=== PATIENT | female | born 1980 | race Caucasian/White ===

== ENCOUNTER 2017-04-15 15:14 | Emergency (ER) | payer BC ==
[2017-04-15 15:28] VITALS: PULSE 75
--- NOTE | 2017-04-15 18:10 | ED ---
General Adult HPI - General Chief complaint: Chest Pain Stated complaint: chest pain Time Seen by Provider: 04/15/17 17:13 Source: patient, family, RN notes reviewed Mode of arrival: wheelchair Limitations: no limitations - History of Present Illness Initial comments: Chief complaint and history of present illness a 36-year-old female who is coming emergency room after being in the clinic. Today when she awakened she has some tingling to the left side of her face which is since gone away tingling to the left arm left leg. No difficulty walking talking her balance. The patient's recently finished 10 days of Bactrim for a possible sinus infection. No other symptoms no other problems. - Related Data Home Medications Medication Instructions Recorded Confirmed Cetirizine HCl [Zyrtec] 10 mg PO HS PRN 04/15/17 04/15/17 diphenhydrAMINE HCL [Benadryl] 25 mg PO HS PRN 04/15/17 04/15/17 Allergies Allergy/AdvReac Type Severity Reaction Status Date / Time sulfamethoxazole Allergy Rash/Hives Verified 04/15/17 17:30 [From Bactrim] trimethoprim [From Bactrim] Allergy Rash/Hives Verified 04/15/17 17:30 Review of Systems ROS Statement: Those systems with pertinent positive or pertinent negative responses have been documented in the HPI. Review of systems no headache no visual acuity changes no tingling to the left side of face is gone. Some tingling to the ulnar aspect of her left arm to full range of motion with good rn chronic no chest pain palpitations shortness breath GI/ problems. And no neuro deficits other than subjective complaint of tingling to her left leg as well. All systems are reviewed Past medical problems none. Surgeries 3 C-sections, negative brown breast biopsy, laparoscopic exams for endometriosis and appendectomy. Family history mother had breast cancer. There is one family member with a stroke and EMS. The patient is not listing sulfa as an ALLERGY. Nonsmoker nondrinker. ROS Other: All systems not noted in ROS Statement are negative. Past Medical History Past Medical History: No Reported History Additional Past Medical History / Comment(s): ovarian cyst History of Any Multi-Drug Resistant Organisms: None Reported Past Surgical History: Section Additional Past Surgical History / Comment(s): 3 c section Past Psychological History: No Psychological Hx Reported Smoking Status: Never smoker Past Alcohol Use History: None Reported Past Drug Use History: None Reported General Exam - General Exam Comments Initial Comments: General: The patient is awake and alert, in no distress, and does not appear acutely ill. Plan a tingling sensation lateral aspect of the left arm left leg. Vital signs temperature 98.0 pulse 75 respiratory rate 18 pulse ox on percent room air blood pressure 120/58 Eye: Pupils are equal, round and reactive to light, extra-ocular movements are intact ; there is normal conjunctiva bilaterally. No signs of icterus. Ears, nose, mouth and throat: There are moist mucous membranes and no oral lesions. Neck: The neck is supple, there is no tenderness or JVD. Cardiovascular: There is a regular rate and rhythm. No murmur, rub or gallop is appreciated. Respiratory: Lungs are clear to auscultation, respirations are non-labored, breath sounds are equal. No wheezes, stridor, rales, or rhonchi. Back: There is no tenderness to palpation in the midline. There is no obvious deformity. No rashes noted. Musculoskeletal: Normal ROM, no tenderness, There is no pedal edema. There is no calf tenderness or swelling. Sensation intact. Pulses equal bilaterally 2+. Sensation of tingling to the left arm left lateral leg Neurological: CN II-XII intact, There are no obvious motor or sensory deficits. Coordination appears grossly intact. Speech is normal. No discernible deficits Skin: Skin is warm and dry and no rashes or lesions are noted. No rashes Limitations: no limitations Course Vital Signs 04/15/17 04/15/17 15:24 19:36 Temperature 98.0 F 98.4 F Pulse Rate 75 75 Respiratory 18 16 Rate Blood Pressure 120/58 112/57 O2 Sat by Pulse 100 100 Oximetry Medical Decision Making - Medical Decision Making Medical decision making the patient's white count 6 hemoglobin 13.9 hematocrit of 41 with a potassium 3.7. BUN 11 creatinine 0.63 with a GFR greater than 60. The glucose 84. CK 85 troponin 0.0-6. Patient feels better less tingling. She does have an appointment to follow-up with her family physician on Tuesday Rhianna she is been discussing this with her family physician and they're arranging an MRI. Patient advised to follow-up - Lab Data Result diagrams: 04/15/17 18:50 04/15/17 18:50 Lab Results 04/15/17 04/15/17 04/15/17 Range/Units 18:50 18:50 18:50 WBC 6.1 (3.8-10.6) k/uL RBC 4.82 (3.80-5.40) m/uL Hgb 13.9 (11.4-16.0) gm/dL Hct 41.5 (34.0-46.0) % MCV 86.2 (80.0-100.0) fL MCH 28.9 (25.0-35.0) pg MCHC 33.5 (31.0-37.0) g/dL RDW 13.9 (11.5-15.5) % Plt Count 255 (150-450) k/uL Neutrophils % 54 % Lymphocytes % 37 % Monocytes % 4 % Eosinophils % 2 % Basophils % 1 % Neutrophils # 3.3 (1.3-7.7) k/uL Lymphocytes # 2.3 (1.0-4.8) k/uL Monocytes # 0.2 (0-1.0) k/uL Eosinophils # 0.1 (0-0.7) k/uL Basophils # 0.0 (0-0.2) k/uL Sodium 139 (137-145) mmol/L Potassium 3.7 (3.5-5.1) mmol/L Chloride 103 (98-107) mmol/L Carbon Dioxide 26 (22-30) mmol/L Anion Gap 10 mmol/L BUN 11 (7-17) mg/dL Creatinine 0.63 (0.52-1.04) mg/dL Est GFR (MDRD) Af Amer >60 (>60 ml/min/1.73 sqM) Est GFR (MDRD) Non-Af >60 (>60 ml/min/1.73 sqM) Glucose 84 (74-99) mg/dL Calcium 9.0 (8.4-10.2) mg/dL Total Bilirubin 1.1 (0.2-1.3) mg/dL AST 22 (14-36) U/L ALT 41 (9-52) U/L Alkaline Phosphatase 64 (38-126) U/L Total Creatine Kinase 85 (30-135) U/L CK-MB (CK-2) 0.5 (0.0-2.4) ng/mL CK-MB (CK-2) Rel Index 0.6 Troponin I 0.026 (0.000-0.034) ng/mL Total Protein 7.1 (6.3-8.2) g/dL Albumin 4.4 (3.5-5.0) g/dL Disposition Clinical Impression: Paresthesia of arm Disposition: HOME SELF-CARE Condition: Fair Instructions: Paresthesia (ED) Additional Instructions: Take Benadryl as directed. Follow-up with family physician. Get MRI as you've discussed with your family doctor Referrals: Roxane Mixon MD [Primary Care Provider] - 1-2 days Time of Disposition: 19:49
[2017-04-15 18:59] LABS: Basophils % (A) 1 %; CH 30.1; CHCM 35.1; Eosinophils # (A) 0.1 k/uL (0-0.7); Eosinophils % (A) 2 %; HCT 41.5 % (34.0-46.0); HDW 2.87; HGB 13.9 gm/dL (11.4-16.0); Luc # (Auto) 0.13; Luc % (Auto) 2; Lymphocytes # (A) 2.3 k/uL (1.0-4.8); Lymphocytes % (A) 37 %; MCH 28.9 pg (25.0-35.0); MCHC 33.5 g/dL (31.0-37.0); MCV 86.2 fL (80.0-100.0); Mean Platelet Volume 7.4; Monocytes # (A) 0.2 k/uL (0-1.0); Monocytes % (A) 4 %; Neutrophils # (A) 3.3 k/uL (1.3-7.7); Neutrophils % (A) 54 %; RBC 4.82 m/uL (3.80-5.40); RDW 13.9 % (11.5-15.5); WBC 6.1 k/uL (3.8-10.6); WBC (Perox) 6.02
[2017-04-15 19:09] LABS: ALT 41 U/L (9-52); AST 22 U/L (14-36); Alkaline Phosphatase 64 U/L (38-126); Anion Gap 10 mmol/L; Blood Urea Nitrogen 11 mg/dL (7-17); Carbon Dioxide 26 mmol/L (22-30); Chloride 103 mmol/L (98-107); Glucose 84 mg/dL (74-99); Non-African American GFR(MDRD) >60 (>60 ml/min/1.73 sqM); Potassium 3.7 mmol/L (3.5-5.1); Sodium 139 mmol/L (137-145); Total Bilirubin 1.1 mg/dL (0.2-1.3); Total Protein 7.1 g/dL (6.3-8.2)
--- NOTE | 2017-04-15 19:10 | XR ---
EXAMINATION TYPE: XR chest 2V DATE OF EXAM: 04/15/2017 COMPARISON: NONE HISTORY: Weakness TECHNIQUE: Frontal and lateral views of the chest are obtained. FINDINGS: Heart and mediastinum are normal. There is a mild infiltrate in the right middle lobe. The other lung hopkins are clear. There is no pleural effusion. Bony thorax is intact. IMPRESSION: Small right middle lobe infiltrate. Normal heart.
[2017-04-15 19:24] LABS: Creatine Kinase MB 0.5 ng/mL (0.0-2.4); Troponin I 0.026 ng/mL (0.000-0.034)
[2017-04-15 19:38] VITALS: BP 112/57; RESP 16; TEMP 98.4
== END 2017-04-15 20:01 | disposition home or self-care (01) ==
LOC: EC 15:14
DX: R20.2 Paresthesia of skin (principal); Z88.2 Allergy status to sulfonamides
CPT/HCPCS: 36415; 71020; 80053; 82550; 82553; 84484; 85025; 93005; 99285

== ENCOUNTER → 2017-04-27 | Outpatient (CLI) | payer BC ==
--- NOTE | 2017-04-27 11:08 | XR ---
EXAMINATION TYPE: XR chest 2V DATE OF EXAM: 04/27/2017 COMPARISON: 04/15/2017 TECHNIQUE: PA and lateral views submitted. HISTORY: Abnormal x-ray FINDINGS: The lungs are clear and there is no pneumothorax, pleural effusion, or focal pneumonia. Hypertrophi c change of the spine. IMPRESSION: 1. No acute process.
== END | disposition home or self-care (01) ==
LOC: RADXRMAIN 10:29
PROVIDERS: ATTEND Family Medicine
DX: J18.1 Lobar pneumonia, unspecified organism (principal)
CPT/HCPCS: 71020

== ENCOUNTER 2018-11-01 16:00 | Emergency (ER) | payer BC ==
[2018-11-01 16:06] VITALS: TEMP 98.2
[2018-11-01] MEDS ORDERED: METOCLOPRAMIDE 5 MG/ML 2 ML VIAL IVP STA (16:44)
[2018-11-01] MEDS ORDERED: KETOROLAC 30 MG/ML 1 ML VIAL IVP STA (16:44)
[2018-11-01] MEDS ORDERED: diphenhydrAMINE 50 MG/ML 1 ML VIAL IVP STA (16:44)
[2018-11-01] MEDS ORDERED: SODIUM CHLORIDE 0.9% 1,000 ML IV STA (16:44)
[2018-11-01 17:55] VITALS: BP 110/60; PULSE 78; RESP 18
--- NOTE | 2018-11-01 18:12 | ED ---
General Adult HPI - General Chief complaint: Headache Stated complaint: headaches/left side facial problems Time Seen by Provider: 11/01/18 16:10 Source: patient, RN notes reviewed Mode of arrival: ambulatory Limitations: no limitations - History of Present Illness Initial comments: 38-year-old female without any past medical history besides ovarian cysts presents to the emergency department for a chief complaint of PARKS. Patient states she has had of headache on and off for the past couple days. He states this PARKS has persisted since last night. She states it is over the frontal area of her head. Patient states she has had significant amount of congestion over the past 5 days. She states both of her children have been sick at home with similar illnesses. Patient is complaining of a left-sided facial pain over the maxillary sinus radiating into the left ear. Patient states she does have pressure in the left ear as well. Patient states these headaches started when she started to become congested. She denies cough or fever. Patient admits to a sore throat. Patient denies any weakness in the upper or lower extremities. Denies any difficulty speaking. Patient went to [facility] and they were apparently concerned about stroke due to the left-sided facial pain. Patient has no other complaints at this time including shortness of breath, chest pain, abdominal pain, nausea or vomiting, or visual changes. - Related Data Home Medications Medication Instructions Recorded Confirmed Fluticasone Nasal [place] [Flonase 1 - 2 spray EA NOSTRIL DAILY PRN 11/01/18 11/01/18 Nasal [place]] Ibuprofen/Pseudoephedrine HCl 1 tab PO Q6H PRN 11/01/18 11/01/18 [Advil Cold & Sinus Caplet] Norethindrone AC-Eth Estradiol 1 tab PO DAILY 11/01/18 11/01/18 [Loestrin 21 1-20 Tablet] Pseudoephedrine [Sudafed] 30 mg PO Q4H PRN 11/01/18 11/01/18 Previous Rx's Medication Instructions Recorded Amoxicillin/Potassium Clav 1 tab PO Q12HR #20 tab 11/01/18 [Augmentin 875-125 Tablet] Fluticasone Propionate [Flonase 1 spray EA NOSTRIL DAILY #9.9 ml 11/01/18 Allergy Relief] Allergies Allergy/AdvReac Type Severity Reaction Status Date / Time sulfamethoxazole Allergy Rash/Hives Verified 11/01/18 16:06 [From Bactrim] trimethoprim [From Bactrim] Allergy Rash/Hives Verified 11/01/18 16:06 Review of Systems ROS Statement: Those systems with pertinent positive or pertinent negative responses have been documented in the HPI. ROS Other: All systems not noted in ROS Statement are negative. Past Medical History Past Medical History: No Reported History Additional Past Medical History / Comment(s): ovarian cyst History of Any Multi-Drug Resistant Organisms: None Reported Past Surgical History: Section Additional Past Surgical History / Comment(s): 3 c section Past Psychological History: No Psychological Hx Reported Smoking Status: Never smoker Past Alcohol Use History: None Reported Past Drug Use History: None Reported General Exam Limitations: no limitations General appearance: alert, in no apparent distress Head exam: Present: atraumatic, normocephalic, normal inspection Eye exam: Present: normal appearance, PERRL, EOMI. Absent: scleral icterus, conjunctival injection, periorbital swelling ENT exam: Present: normal exam, normal oropharynx (uvula midline, non erythematous), mucous membranes moist, normal external ear exam, other (tenderness noted over the left maxillary sinus, no significant erythema noted). Absent: TM's normal bilaterally (Patient has a serous otitis media noted of the left ear) Neck exam: Present: normal inspection, full ROM. Absent: tenderness, meningismus, lymphadenopathy Respiratory exam: Present: normal lung sounds bilaterally. Absent: respiratory distress, wheezes, rales, rhonchi, stridor Cardiovascular Exam: Present: regular rate, normal rhythm, normal heart sounds. Absent: systolic murmur, diastolic murmur, rubs, gallop, clicks Neurological exam: Present: alert, oriented X3, CN II-XII intact, normal gait Expanded Patient oriented to: Present: person, place, time Speech: Present: fluid speech Cranial nerves: EOM's Intact: Normal, Tongue Deviation: Normal, Nystagmus: Normal, Facial Sensation: Normal (sensation intact bilat) Cerebellar function: Finger to Nose: Normal, Heel to Diaz: Normal, Romberg: Normal Upper motor neuron: Julio Neglect: Normal, Pronator Drift: Normal Sensory exam: Upper Extremity Light Touch: Normal, Upper Extremity Pin Prick: Normal, Lower Extremity Light Touch: Normal, Lower Extremity Pin Prick: Normal Motor strength exam: RUE: 5 (no drift), LUE: 5 (no drift), RLE: 5 (no drift), LLE: 5 (no drift) Eye Response: (4) open spontaneously Motor Response: (6) obeys commands Verbal Response: (5) oriented Steff Total: 15 Psychiatric exam: Present: normal affect, normal mood Course Vital Signs 11/01/18 11/01/18 11/01/18 16:03 17:53 18:58 Temperature 98.2 F 98.2 F Pulse Rate 89 78 78 Respiratory 16 18 18 Rate Blood Pressure 143/87 110/60 110/60 O2 Sat by Pulse 100 98 98 Oximetry Medical Decision Making - Medical Decision Making 38-year-old female presents to the emergency department for chief complaint of headache and congestion 5 days. Patient has had congestion and sore throat for 5 days. She has had some headache and left-sided facial pain for the past few days intermittently. However this headache has persisted since last night. Patient states she has pressure behind her left ear. Denies loss of sensation of the face bilaterally. On exam facial movements are symmetric. No neuro deficits whatsoever. Patient is well-appearing. Apparently [facility] was concerned about a stroke however I do not see any neuro deficits in this patient and all have her symptoms are consistent with sinusitis. Patient was treated symptomatically for fever and pain decreased from 8-3. Patient is feeling significantly improved. Patient was given Augmentin for sinus infection. She will follow up with primary care in 1-2 days. I did discuss returning here patient has any worsening symptoms - Lab Data Lab Results 11/01/18 Range/Units 17:27 Influenza Type A RNA Not Detected (Not Detectd) Influenza Type B (PCR) Not Detected (Not Detectd) Disposition Clinical Impression: Sinusitis Disposition: HOME SELF-CARE Condition: Good Instructions (If sedation given, give patient instructions): Sinusitis (ED) Additional Instructions: Please take antibiotic as directed. Please use nasal spray. Follow up with primary care in 1-2 days. Return here to the emergency department if you have any worsening symptoms. Prescriptions: Amoxicillin/Potassium Clav [Augmentin 875-125 Tablet] 1 tab PO Q12HR #20 tab Fluticasone Propionate [Flonase Allergy Relief] 1 spray EA NOSTRIL DAILY #9.9 ml Is patient prescribed a controlled substance at d/c from ED?: No Referrals: Roxane Mixon MD [Primary Care Provider] - 1-2 days Time of Disposition: 17:50
== END 2018-11-01 18:58 | disposition home or self-care (01) ==
LOC: EC 16:00
DX: J32.9 Chronic sinusitis, unspecified (principal); H65.92 Unspecified nonsuppurative otitis media, left ear; Z88.2 Allergy status to sulfonamides; Z79.3 Long term (current) use of hormonal contraceptives
CPT/HCPCS: 87502; 99284; 96374; 96375 ×2; 96361; J1200; J2765; J1885

== ENCOUNTER 2023-03-08 15:39 | Emergency (ER) | payer BC ==
[2023-03-08 15:51] VITALS: RESP 18; TEMP 97.9
[2023-03-08] MEDS ORDERED: ACETAMINOPHEN TAB 325 MG TAB PO STA (16:20)
[2023-03-08 17:09] LABS: Glucose,Whole Blood 123 mg/dL (70-110)
--- NOTE | 2023-03-08 17:24 | CT ---
EXAMINATION TYPE: CT facial bones wo con CT DLP: combined DLP 1312.6 mGycm, Automated exposure control for dose reduction was used. DATE OF EXAM: 03/08/2023 4:47 PM COMPARISON: CT brain and cervical spine 03/08/2023. CLINICAL INDICATION:Female, 42 years old with history of fall; PHH, fall TECHNIQUE: Multiple unenhanced axial CT images were obtained of the facial bones soft tissue and bone windows. Coronal, axial and sagittal reformatted images were also provided in soft tissue and bone windows and submitted for interpretation. Additional 3-D reformatted images were obtained on a [employer] workstation. FINDINGS: Minimally displaced fracture involving the right and left nasal bones (series 14, image 29 and series 208, image 61). Mild soft tissue swelling of the nasal bridge and the nasal turbinates. The orbital contents are unremarkable. The temporal-mandibular joints appear symmetric. Mild edema of the nasal t urbinates and anterior ethmoid air cells. The remainder of the paranasal sinuses are normal in appear ance. IMPRESSION: Minimally displaced fractures of the nasal bones bilaterally with associated soft tissue swelling and edema of the nasal turbinates.
--- NOTE | 2023-03-08 17:24 | CT ---
EXAMINATION TYPE: CT brain cspine wo con CT DLP: combined DLP 1312.6 mGycm, Automated exposure control for dose reduction was used. DATE OF EXAM: 03/08/2023 4:47 PM COMPARISON: CT facial bone 03/08/2023. CLINICAL INDICATION:Female, 42 years old with history of fall; fall TECHNIQUE: Brain: Multiple axial CT images of the brain were obtained without IV contrast. Cspine: Axial CT images from the skull base to the inferior aspect of T2 we obtained without intraven ous contrast. Coronal and sagittal reformatted images were also reviewed. FINDINGS: Brain: Extra-axial spaces: No abnormal extra-axial fluid collections. Ventricular system: Within normal limits Cerebral parenchyma: No acute intraparenchymal hemorrhage or mass effect. The miller-white junction is well differentiated. Cerebellum: Unremarkable. Mass effect: No evidence of midline shift. Intracranial vasculature: unremarkable Soft tissues: Normal. Calvarium/osseous structures: No depressed skull fracture. Paranasal sinuses and mastoid air cells: Clear.Mastoid air cells are Clear Visualized orbits: Orbital contents are intact. Cervical spine: Fracture: None. Osseous structures: Unremarkable Vertebral alignment: Mild reversal of the normal cervical lordosis which is likely due to positioning . The craniocervical and cervicothoracic junctions are normally aligned. Spinal canal/Neural Foramina: No evidence of significant spinal canal narrowing. No evidence for sign ificant neural foraminal stenosis. Neck soft tissues: Prevertebral soft tissues are within normal limits. Other: The airway is patent. The lung apices are clear. IMPRESSION: 1. No acute intracranial process. 2. No evidence of cervical spine fracture.
--- NOTE | 2023-03-08 17:38 | ED ---
General Adult HPI - General Chief complaint: Fall Stated complaint: Fall Time Seen by Provider: 03/08/23 15:57 Source: patient, family, RN notes reviewed Mode of arrival: wheelchair - History of Present Illness Initial comments: 42-year-old female with no significant past medical history presents the emergency department with a chief complaint of fall. She reports that she was attempting to travel down her crotch steps when she lost her footing and fell down approximately 3 steps as there is no rale on that side. She reports she did fall forward into her face. She denies any loss of consciousness or anticoagulant use. She is complaining of slight headache. She denies any nausea, vomiting, dizziness, lightheadedness, vision changes or vision loss. - Related Data Home Medications Medication Instructions Recorded Confirmed norethindrone ac-eth estradioL 1 tab PO HS 11/01/18 03/08/23 [Loestrin 21 1-20 Tablet] Atorvastatin Calcium 20 mg PO HS 03/08/23 03/08/23 Cetirizine HCl [Zyrtec] 10 mg PO HS 03/08/23 03/08/23 Escitalopram [Lexapro] 10 mg PO HS 03/08/23 03/08/23 Fluticasone Propionate [Flonase 1 spray EA NOSTRIL BID 03/08/23 03/08/23 Allergy Relief] Previous Rx's Medication Instructions Recorded Ibuprofen [Motrin] 800 mg PO Q6HR #30 tab 03/08/23 Allergies Allergy/AdvReac Type Severity Reaction Status Date / Time sulfamethoxazole Allergy Rash/Hives Verified 03/08/23 17:35 [From Bactrim] trimethoprim [From Bactrim] Allergy Rash/Hives Verified 03/08/23 17:35 Review of Systems ROS Statement: Those systems with pertinent positive or pertinent negative responses have been documented in the HPI. ROS Other: All systems not noted in ROS Statement are negative. Past Medical History Past Medical History: No Reported History Additional Past Medical History / Comment(s): ovarian cyst History of Any Multi-Drug Resistant Organisms: None Reported Past Surgical History: Section Additional Past Surgical History / Comment(s): 3 c section Past Psychological History: No Psychological Hx Reported Smoking Status: Never smoker Past Alcohol Use History: None Reported Past Drug Use History: None Reported General Exam - General Exam Comments Initial Comments: General: Alert, in no acute distress Head: atraumatic normocephalic. Eyes PERRL, EOMI intact, mucous membranes moist, nose with mild ecchymosis no active bleeding mild tenderness Respiratory: Lungs clear to auscultation bilaterally Cardiovascular: Heart rate regular rate and rhythm Abdominal: Soft without guarding or rebound Extremities: Normal inspection with full range of motion and normal capillary refill Neuroogic: alert and oriented 3, CN II-XII intact, able to ambulate with steady gait Skin: warm dry and intact with normal color Course Vital Signs 03/08/23 03/08/23 15:44 17:56 Temperature 97.9 F Pulse Rate 79 68 Respiratory 18 18 Rate Blood Pressure 115/81 124/62 O2 Sat by Pulse 97 99 Oximetry Medical Decision Making - Medical Decision Making Was pt. sent in by a medical professional or institution (, PA, RATE CLERK PASSENGER, urgent care, hospital, or senior care...) When possible be specific @ -[No] Did you speak to anyone other than the patient for history (EMS, parent, family, police, friend...)? What history was obtained from this source @ -[No] Did you review nursing and triage notes (agree or disagree)? Why? @ -[I reviewed and agree with nursing and triage notes] Were old charts reviewed (outside hosp., previous admission, EMS record, old EKG, old radiological studies, urgent care reports/EKG's, senior care records)? Report findings @ -[No old charts were reviewed] Differential Diagnosis (chest pain, altered mental status, abdominal pain women, abdominal pain men, vaginal bleeding, weakness, fever, dyspnea, syncope, headac he, dizziness, GI bleed, back pain, seizure, CVA, palpatations, mental health, musculoskeletal)? @ -[not applicable] EKG interpreted by me (3pts min.). @ -[As above] X-rays interpreted by me (1pt min.). @ -[None done] CT interpreted by me (1pt min.). @ -CT brain and C-spine negative for any evidence of fracture dislocation CT facial bones remarkable for nasal bone fracture. U/S interpreted by me (1pt. min.). @ -[None done] What testing was considered but not performed or refused? (CT, X-rays, U/S, labs)? Why? @ -[None] What meds were considered but not given or refused? Why? @ -[None] Did you discuss the management of the patient with other professionals (professionals i.e. , PA, RATE CLERK PASSENGER, lab, RT, psych nurse, social work lecturer, liquid loader, teacher, correction officer head, telephonic nurse case manager)? Give summary @ -[No] Was smoking cessation discussed for >3mins.? @ -[No] Was critical care preformed (if so, how long)? @ -[No] Were there social determinants of health that impacted care today? How? (Homelessness, low income, unemployed, alcoholism, drug addiction, transportation, low edu. Level, literacy, decrease access to med. care, long-term, rehab)? @ -[No] Was there de-escalation of care discussed even if they declined (Discuss DNR or withdrawal of care, Hospice)? DNR status @ -[No] What co-morbidities impacted this encounter? (DM, HTN, Smoking, COPD, CAD, Cancer, CVA, ARF, Chemo, Hep., AIDS, mental health diagnosis, sleep apnea, morbid obesity)? @ -[None] Was patient admitted / discharged? Hospital course, mention meds given and route, prescriptions, significant lab abnormalities, going to OR and other pertinent info. @ Discharge. This is a 20-year-old female with no significant past medical history who presents to the emergency department with dysuria. Patient had a thorough history and physical exam performed on the emergency department. Heart rate regular rate and rhythm, lungs clear to auscultation bilaterally, abdomen soft nontender no CVA tenderness. Nose with mild. The medic, edema, ecchymosis . Patient had lab work and imaging which revealed: Bilateral nasal bone fractures Discussed the results in detail with the patient verbalized understanding and all questions were addressed. She'll be discharged home in stable condition with strict return precautions discussed. She was given motrin while the emergency department. Patient discharged in stable condition. Case discussed with AILYN Torres who agrees with plan of care Undiagnosed new problem with uncertain prognosis? @ -[No] Drug Therapy requiring intensive monitoring for toxicity (Heparin, Nitro, Insulin, Cardizem)? @ -[No] Were any procedures done? @ -[No] Diagnosis/symptom? @ -Fall - Nasal Bone Fracture Acute, or Chronic, or Acute on Chronic? @ -Acute Uncomplicated (without systemic symptoms) or Complicated (systemic symptoms)? @ -Uncomplicated Side effects of treatment? @ -[No] Exacerbation, Progression, or Severe Exacerbation? @ -[No] Poses a threat to life or bodily function? How? (Chest pain, [place], [place], pneumonia, PE, COPD, DKA, ARF, appy, cholecystitis, CVA, Diverticulitis, Homicidal, Suicidal, threat to staff... and all critical care pts) @ -Low Likelihood - Lab Data Lab Results 03/08/23 Range/Units 17:05 POC Glucose (mg/dL) 123 H (70-110) mg/dL POC Glu Dietitian Chief ID Karen Mathews Disposition Clinical Impression: Fall, Nasal bone fracture Disposition: HOME SELF-CARE Condition: Stable Instructions (If sedation given, give patient instructions): Nasal Fracture (ED), Fall Prevention (ED) Additional Instructions: Please take Motrin or Tylenol for Pain Please return to the nearest emergency department if symptoms worsen or persist Prescriptions: Ibuprofen [Motrin] 800 mg PO Q6HR #30 tab Is patient prescribed a controlled substance at d/c from ED?: No Referrals: Roxane Mixon MD [Primary Care Provider] - 1-2 days Kishore Garcia DO [Doctor of Osteopathic Medicine] - 1-2 days Time of Disposition: 17:38
[2023-03-08 17:57] VITALS: BP 124/62; PULSE 68
== END 2023-03-08 17:56 | disposition home or self-care (01) ==
LOC: EC 15:39
DX: S02.2XXA Fracture of nasal bones, initial encounter for closed fracture (principal); Z88.2 Allergy status to sulfonamides; W10.9XXA Fall (on) (from) unspecified stairs and steps, initial encounter
CPT/HCPCS: 36415; 70450; 70486; 72125; 99284

== ENCOUNTER 2023-03-16 11:50 | Day surgery (SDC) | payer BC ==
[2023-03-14 15:05] VITALS: BMI 37.2
[~2023-03-16 11:50] MED LIST: DEXAMETHASONE SOD PHOSPHATE 4 MG/ML 1 ML VIAL IV ONE; FAMOTIDINE 20 MG/2 ML VIAL IV PRN; HYDROmorphone 0.5 MG/0.5 ML SYRINGE IVP PRN; LACTATED RINGERS 1,000 ML IV SCH; LIDOCAINE 1% (10MG/ML) FOR IV START INTRADERMA PRN; ONDANSETRON 4 MG/2 ML VIAL IVP ONE; ONDANSETRON 4 MG/2 ML VIAL IVP PRN; SCOPOLAMINE 1 MG/72 HR PATCH TRANSDERM ONE
[2023-03-16 12:39] VITALS: RESP 16
[2023-03-16] MEDS: OXYMETAZOLINE 0.05% NASL SPRAY 1 SPRAY BOTTLE EA NOSTRIL PRN ×5 (12:43→13:07)
[2023-03-16 12:56] LABS: Glucose,Whole Blood 85 mg/dL (70-110)
[2023-03-16] MEDS ORDERED: DEXAMETHASONE SOD PHOSPHATE 10 MG/ML 1 ML VIAL ONE (13:16)
[2023-03-16] MEDS ORDERED: LIDOCAINE 2% INJ 20 MG/ML (2 ML VIAL) ONE (13:16)
[2023-03-16] MEDS ORDERED: SUCCINYLCHOLINE CHLORIDE 200 MG/10 ML VIAL IV ONE (13:16)
[2023-03-16] MEDS ORDERED: MIDAZOLAM 2 MG/2 ML VIAL ONE (13:16)
[2023-03-16] MEDS ORDERED: HYDROmorphone (PF) 1 MG/ML ONE (13:16)
[2023-03-16] MEDS ORDERED: PROPOFOL 10 MG/ML 20 ML VIAL IV ONE (13:16)
[2023-03-16] MEDS ORDERED: fentaNYL (PF) 50 MCG/ML 2 ML AMP ONE (13:16)
[2023-03-16] MEDS ORDERED: BACITRACIN ZINC 500 UNIT/GM OINT 28.4 GM TUBE TOPICAL ONE ×2 (13:29→13:44)
[2023-03-16] MEDS ORDERED: LIDOCAINE 1%/EPI 1:200,000 MPF 10 ML VIAL SUBMUCOSAL ONE ×3 (13:29→13:40)
--- NOTE | 2023-03-16 14:24 | P.OP ---
Date of Procedure: 03/16/23 Preoperative Diagnosis: Nasal fracture with posttraumatic nasal deformity Deviated nasal septum Inferior turbinate hypertrophy Chronic sinusitis Postoperative Diagnosis: Same Procedure(s) Performed: Closed nasal reduction Septoplasty Outfracture and submucous resection inferior turbinates Bilateral endoscopic sinus surgery including bilateral juliana bullectomy and right sphenoidotomy Anesthesia: [place] Surgeon: Ruddy Simon Estimated Blood Loss (ml): 5 Pathology: other (Nasal septal bone and cartilage, sinus contents) Condition: stable Disposition: PACU Indications for Procedure: This is a 42-year-old white female who recently fell striking her face and sustained a nasal fracture. She has history of nasal airway obstruction more so on the right but now it is on the left since her fracture. She also has history of inferior turbinate hypertrophy bilateral juliana bullosa cells which are felt to be obstructive and causing nasal airway obstruction as well as history sinusitis with previous CT showing right sphenoid sinus disease. More recent CT showed some mild ethmoid disease. Operative Findings: Nasal dorsum deviated to the left with crepitus and bony mobility consistent with acute nasal fracture on the left, nasal septum deviated to the left convex with concavity anteriorly but there is septal deviation to the right more posteriorly with synechia from the septum to the inferior turbinates on the right inferior turbinate hypertrophy bilateral ,bilateral juliana bullosa cells mild mucosal thickening in the right sphenoid sinus Description of Procedure: The patient was brought into the operative suite and placed in a supine position. The patient underwent induction of general anesthesia with oral endotracheal intubation without difficulty. The patient was prepped and draped in the usual aseptic fashion with the orbits in the operating field for monitoring to the case and the computed tomography scan was on the computer screen for review throughout the case. 1% lidocaine with 1 :100,000 epinephrine was infused submucosally into both sides of the nasal septum as well as the lateral nasal wall and anterior tips of the middle turbinates. While this was taking vasoconstrictive effect the inferi or turbinates were infractured with Alkol elevator and partial submucous resection of the inferior turbinates was performed with a portion of the submucosal soft tissue and the inferior turbinate bone removed with Coblation device. The inferior turbinates were then outfractured with the Alkol elevator. The nasal fracture manually externally on the left which corrected the nasal dorsal deformity. The synechia between the septum and right inferior turbinate was lysed sharply. A left hemitransfixion incision was then made with the mucoperichondrial and mucoperiosteal flap on the left elevated. The bony cartilaginous junction was disarticulated and the mucoperiosteal flap on the right was elevated. Bony nasal septal deformities were removed with Quincy forceps and an inferior cartilaginous strip was removed leaving a full 1.5 cm caudal strut. Checking intranasally this corrected the nasoseptal deformities and the hemitransfixion incision was closed with a running 4-0 chromic suture. Full 0 endoscopic examination is performed bilaterally. Beginning on the left, the middle turbinate was medialized. A portion of the lateral aspect of the middle turbinate was removed and the remainder compressed to treat the juliana bullosa cell. Attention was then turned to the right where the right juliana bullectomy was performed as it was on the left. Additionally sphenoidotomy was performed on the right under 0 endoscopic visualization and utilizing a straight suction and straight Blakesley forceps. The sinus was explored. [Nasopore nasal dressing was placed in the middle meatus bilaterally under direct visualization]. Bilateral Urbano airway splints coated with bacitracin ointment were placed and sutured transseptally with a 4-0 nylon suture. A Thermoplast external nasal splint was placed over Steri-Strips. The patient was suctioned in oral gastric fashion and was allowed to emerge from general anesthesia having tolerated procedure well and was extubated in the operating suite and transferred to the postoperative recovery area in satisfactory condition.
[2023-03-16 14:32] VITALS: TEMP 97.9
[2023-03-16 14:38] LABS: Glucose,Whole Blood 101 mg/dL (70-110)
[2023-03-16] MEDS ORDERED: droPERidol 5 MG/2 ML VIAL IVP ONE (14:46)
[2023-03-16 15:32] VITALS: BP 167/81; PULSE 86
== END 2023-03-16 15:57 | disposition home or self-care (01) ==
LOC: OR 11:50
PROVIDERS: ATTEND Otolaryngology
DX: S02.2XXA Fracture of nasal bones, initial encounter for closed fracture (principal); J34.2 Deviated nasal septum; J34.3 Hypertrophy of nasal turbinates; J32.9 Chronic sinusitis, unspecified; Z99.81 Dependence on supplemental oxygen; E80.4 Gilbert syndrome; E78.5 Hyperlipidemia, unspecified; K44.9 Diaphragmatic hernia without obstruction or gangrene; Z83.3 Family history of diabetes mellitus; Z83.438 Family history of other disorder of lipoprotein metabolism and other lipidemia; Z83.52 Family history of ear disorders; Z98.891 History of uterine scar from previous surgery; Z98.890 Other specified postprocedural states; Z79.899 Other long term (current) drug therapy; Z91.040 Latex allergy status; Z88.2 Allergy status to sulfonamides; Z91.09 Other allergy status, other than to drugs and biological substances
CPT/HCPCS: 81025; 30140; 31240; 31287; 30520; J2250; J0330; J1100 ×2; J0690; J2405; J3010; J1170 ×2; J2704; J1790; J2001; 88300